=== PATIENT | female | born 1945 | race Hispanic/Latino ===

== ENCOUNTER 2017-02-24 18:26 | Emergency (ER) | payer MEDICARE ==
[2017-02-24 18:45] VITALS: BP 128/77; PULSE 62; TEMP 98.2; BMI 42.0
--- NOTE | 2017-02-24 19:02 | ED PDOC ---
Arrival/HPI - General Time Seen by Provider: 02/24/17 18:54 Historian: Patient - History of Present Illness Narrative History of Present Illness (Text): 02/24/17 18:58 This 71 yo female presents to this ED c/o right shoulder and right arm pain since this morning. Patient stated pain started after stretching her arm to place a dish in microwave. Denies trauma, weakness, paresthesias, sob, cp, gomez, rash, fall, dizziness, swelling, or abnormal gait. Time/Duration: Other (see hpi) Quality: Aching Context: Home Past Medical History - Provider Review Nursing Documentation Reviewed: Yes - Tetanus Immunization Tetanus Immunization: Unknown - Cardiac Hx Pacemaker: No - Neurological Hx Paralysis: No - HEENT Hx HEENT Disorder: Yes (glasses) - Endocrine/Metabolic Hx Diabetes Mellitus Type 1: Yes Hx Hypothyroidism: Yes - Hematological/Oncological Hx Blood Transfusions: Yes Hx Blood Transfusion Reaction: No - Musculoskeletal/Rheumatological Hx Musculoskeletal Disorders: Yes - Gastrointestinal Hx Gastrointestinal Disorders: Yes (gastritis) - Psychiatric Hx Emotional Abuse: No Hx Physical Abuse: No Hx Substance Use: No - Surgical History Hx Cholecystectomy: Yes Other/Comment: b/l carpal tunnel sx, right hip sx has screws, plate,sx for right ankle fx - Anesthesia Hx Anesthesia Reactions: Yes Hx Malignant Hyperthermia: No - Suicidal Assessment Feels Threatened In Home Enviroment: No Family/Social History - Physician Review Nursing Documentation Reviewed: Yes Family/Social History: Other (non-contributory) Smoking Status: Never Smoked Hx Alcohol Use: No Hx Substance Use: No Allergies/Home Meds Allergies/Adverse Reactions: Allergies haloperidol [From Haldol] Allergy (Verified 02/24/17 18:46) DIZZINESS shellfish derived Allergy (Verified 02/24/17 18:46) ANAPHYLAXIS Home Medications: Home Meds Medication Instructions Recorded Confirmed Atorvastatin [Lipitor] 10 mg PO DAILY 01/07/15 02/24/17 Hydromorphone HCl 8 mg PO Q4 PRN 01/07/15 02/24/17 Levothyroxine Sodium 150 mcg PO DAILY 01/07/15 02/24/17 Omeprazole [Prilosec] 40 mg PO BID 01/07/15 02/24/17 PARoxetine [Paxil] 30 mg PO DAILY 01/07/15 02/24/17 Amoxicillin [Amoxil 500 mg Cap] 500 mg PO PRN PRN 02/24/17 02/24/17 Ergocalciferol (Vitamin D2) 1 cap PO QWK 02/24/17 02/24/17 [Vitamin D2] Fentanyl [Duragesic Patch] 2 patch TD QOTHERDAY 02/24/17 02/24/17 Ferrous Sulfate [Feosol] 325 mg PO DAILY 02/24/17 02/24/17 Furosemide [Lasix] 20 mg PO DAILY 02/24/17 02/24/17 Methylprednisolone [Medrol] 0 mg PO DAILY 02/24/17 02/24/17 Pyridoxine [Vitamin B6] 100 mg PO DAILY 02/24/17 02/24/17 metFORMIN [glucOPHAGE] 500 mg PO DAILY 02/24/17 02/24/17 Review of Systems - Review of Systems Constitutional: Normal. absent: Fatigue, Weight Change, Fevers, Night Sweats Eyes: Normal ENT: Normal Respiratory: Normal Cardiovascular: Normal Gastrointestinal: Normal Genitourinary Female: Normal Musculoskeletal: Other ((+) right shoulder pain) Skin: Normal Neurological: Normal Endocrine: Normal Hemo/Lymphatic: Normal Psychiatric: Normal Physical Exam Vital Signs Temp Pulse Resp BP Pulse Ox 02/24/17 20:18 17 98 02/24/17 18:59 98.2 F 62 16 128/77 96 02/24/17 18:43 98.2 F 62 16 128/77 96 Temperature: Afebrile Blood Pressure: Normal Pulse: Regular Respiratory Rate: Normal Appearance: Positive for: Well-Appearing, Non-Toxic, Comfortable Pain Distress: None Mental Status: Positive for: Alert and Oriented X 3 - Systems Exam Head: Present: Atraumatic, Normocephalic Pupils: Present: PERRL Extroacular Muscles: Present: EOMI Conjunctiva: Present: Normal Mouth: Present: Moist Mucous Membranes Neck: Present: Normal Range of Motion, Trachea Midline. No: Meningeal Signs, MIDLINE TENDERNESS, Paraspinal Tenderness, Lymphadenopathy Respiratory/Chest: Present: Clear to Auscultation, Good Air Exchange. No: Respiratory Distress, Accessory Muscle Use, Tender to Palpation Cardiovascular: Present: Regular Rate and Rhythm, Normal S1, S2. No: Murmurs Abdomen: Present: Normal Bowel Sounds. No: Tenderness, Distention, Peritoneal Signs Back: Present: Normal Inspection Upper Extremity: Present: Normal Inspection, NORMAL PULSES, Tenderness (mild tenderness over right shoulder, just inferior to right middle deltoid area. No swelling, erythema or ecchymosis), Neurovascularly Intact, Capillary Refill < 2s. No: Cyanosis, Edema, Normal ROM (decreased due to pain), Swelling, Erythema , Deformity Lower Extremity: Present: Normal Inspection. No: Edema Neurological: Present: GCS=15, CN II-XII Intact, Speech Normal, Motor Func Grossly Intact, Normal Sensory Function, Normal Cerebellar Funct, Gait Normal, Memory Normal Skin: Present: Warm, Dry, Normal Color. No: Rashes Psychiatric: Present: Alert, Oriented x 3, Normal Insight, Normal Concentration Medical Decision Making ED Course and Treatment: 02/24/17 20:09 Re-evaluation. Patient feels better. Discussed results and plan with patient who expresses understanding. All questions answered and there is agreement with the plan to discharge home with instructions. Patient stable for discharge. Return if symptoms persist or worsen. Re-evaluation Time: 20:09 Reassessment Condition: Re-examined, Improved - RAD Interpretation Narrative RAD Interpretations (Text): Venous Upper extremity Doppler Ultrasound: No DVT as per ultrasound Shoulder x-rays: No fracture or dislocation Humerus x-rays: No fx Radiology Orders: 02/24/17 18:54 SHOULDER RIGHT [RAD] Stat DUPLEX UPPER EXTRM VEIN RIGHT [US] Stat 02/24/17 18:55 HUMERUS RIGHT [RAD] Stat - Medication Orders Current Medication Orders: Discontinued Medications Ketorolac Tromethamine (Toradol) 15 mg IM STAT STA Stop: 02/24/17 20:10 Last Admin: 02/24/17 20:17 Dose: 15 mg Disposition/Present on Arrival - Present on Arrival Any Indicators Present on Arrival: No History of DVT/PE: No History of Uncontrolled Diabetes: No Urinary Catheter: No History Surgical Site Infection Following: None - Disposition Have Diagnosis and Disposition been Completed?: Yes Diagnosis: Shoulder pain, right Disposition: HOME/ ROUTINE Disposition Time: 20:10 Patient Plan: Discharge Condition: GOOD Discharge Instructions (ExitCare): Shoulder Bursitis (ED) Additional Instructions: Call private doctor for follow up visit in 1-2 days. Continue with home medication. Return to emergency if symptoms worsen. Apply cold and warmth compress Referrals: Quinten Tsai MD [Staff Provider] - Follow up with primary Manjeet Johnson DO [Staff Provider] - Follow up with primary Forms: [employer] (Albanian)
[2017-02-24 20:19] VITALS: RESP 17; O2SAT 98
--- NOTE | 2017-02-25 10:56 | US ---
PROCEDURE: Right upper extremity venous US CLINICAL HISTORY: Arm pain and swelling Evaluate for deep venous thrombosis. PHYSICIAN(S): Kash Sanchez M.D FINDINGS: The visualized rightinternal jugular vein is sonographically normal and compressible. No evidence of obstruction or thrombus is seen. The visualized segments of the right subclavian vein are patent with normal waveforms. No sonographic evidence of obstruction or thrombosis is seen. The visualized deep venous system of the proximal right upper extremity is sonographically normal and compressible. IMPRESSION: 1. No sonographic evidence for deep venous thrombosis in the visualized segments of the right upper extremity.
--- NOTE | 2017-02-25 11:06 | RAD ---
PROCEDURE: Radiographs of the right humerus. HISTORY: pain COMPARISON: None. FINDINGS: BONES: Normal. No fracture or focal lesion. SOFT TISSUES: Normal. OTHER FINDINGS: None. IMPRESSION: Normal radiographs of right humerus.
--- NOTE | 2017-02-25 11:08 | RAD ---
PROCEDURE: Radiographs of the Right Shoulder HISTORY: pain COMPARISON: No prior. FINDINGS: BONES: Normal. No fracture. JOINTS: Mild to moderate degenerative changes are seen in the glenohumeral and acromioclavicular joints SOFT TISSUES: Normal. OTHER FINDINGS: None. IMPRESSION: Mild to moderate degenerative changes. No acute findings
== END 2017-02-24 20:18 | disposition home or self-care (01) ==
LOC: ED 18:26
DX: M25.511 Pain in right shoulder (principal)
CPT/HCPCS: 73030; 73060; 93971; 96372; 99283; J1885

== ENCOUNTER 2018-09-14 11:41 | Outpatient (CLI) | payer MEDICARE | END 2018-09-14 11:42 | disposition home or self-care (01) | LOC: RAD 11:41 ==

== ENCOUNTER 2018-09-24 11:44 | Day surgery (SDC) | payer MEDICARE ==
[2018-09-21 16:10] VITALS: BMI 39.0
[2018-09-24] MEDS ORDERED: Propofol 10 mg/ml Inj (20 ML) ONE (14:01)
[2018-09-24] MEDS ORDERED: Etomidate 20 mg/10ml Inj IV ONE (14:05)
[2018-09-24] MEDS ORDERED: Sodium Chloride 0.9% 1,000 ML IV SCH (14:30)
[2018-09-24 15:33] VITALS: TEMP 97.9
[2018-09-24 15:34] VITALS: BP 121/60; PULSE 64; RESP 17; O2SAT 98
== END 2018-09-24 15:51 | disposition home or self-care (01) ==
LOC: ENDO 11:44
PROVIDERS: ATTEND Internal Medicine Gastroenterology
DX: K92.1 Melena (principal); K31.7 Polyp of stomach and duodenum; K29.50 Unspecified chronic gastritis without bleeding
CPT/HCPCS: 43239; 82948; 88305; 88342; J2001; J2704; J3010; J7030; J7040